=== PATIENT | male | born 1995 | race Caucasian/White ===

== ENCOUNTER 2017-01-30 11:47 | Emergency (ER) | payer SELFPAY ==
[2017-01-30] MEDS ORDERED: SILVER SULFADIAZINE CREAM 1 APPL CRE TOP ONE ×4 (12:11→12:18)
[2017-01-30] MEDS ORDERED: CEFTRIAXONE 1 GM PDS IM ONE (12:14)
[2017-01-30] MEDS ORDERED: BACITRACIN 500 U/GM OIN TOP ONE ×2 (12:17→12:18)
[2017-01-30] MEDS ORDERED: KETOROLAC TROMETHAMINE 30 MG/ML SOL IM ONE (12:18)
[2017-01-30] MEDS ORDERED: CEFTRIAXONE 1 GM PDS ONE (12:19)
[2017-01-30] MEDS ORDERED: KETOROLAC TROMETHAMINE 30 MG/ML SOL ONE (12:19)
[2017-01-30] MEDS ORDERED: LIDOCAINE HCL 1% MPF SOL ONE (12:24)
[2017-01-30 13:00] VITALS: BP 156/106; PULSE 65; RESP 18; TEMP 97.8; O2SAT 100
== END 2017-01-30 13:29 | disposition home or self-care (01) | DRG 607 ==
LOC: ED 11:47
DX: L55.1 Sunburn of second degree (principal)
CPT/HCPCS: 96372; 99283; J0696; J1885; J2001

== ENCOUNTER 2017-02-06 00:37 | Emergency (ER) | payer SELFPAY ==
[2017-02-06] MEDS ORDERED: THIAMINE 100 MG/ML 100 MG/ML SOL ONE (00:49)
[2017-02-06] MEDS ORDERED: THIAMINE 100 MG/ML 100 MG/ML SOL IV ONE (00:49)
[2017-02-06] MEDS ORDERED: DEXTROSE/SALINE 0.9% 1,000 ML IV ONE (00:49)
[2017-02-06 01:29] VITALS: RESP 16
[2017-02-06 01:36] LABS: AMPHETAMINES NEGATIVE (NEGATIVE); METHADONE NEGATIVE (NEGATIVE); OPIATES(OP13) NEGATIVE (NEGATIVE); OXYCODONE(OXY) NEGATIVE (NEGATIVE); PROPOXYPHENE(PPX) NEGATIVE (NEGATIVE); TRICYCLIC ANTIDEPRESSANTS NEGATIVE (NEGATIVE)
[2017-02-06 03:05] VITALS: BP 111/58; PULSE 85; TEMP 97.8; O2SAT 98
== END 2017-02-06 03:10 | disposition other institution (70) | DRG 897 ==
LOC: ED 00:37
DX: F10.129 Alcohol abuse with intoxication, unspecified (principal); Y90.8 Blood alcohol level of 240 mg/100 ml or more
CPT/HCPCS: 80305; 80307; 96365; 96374; 99282; 99283